=== PATIENT | female | born 1975 | race African-American/Black ===

== ENCOUNTER 2018-04-18 19:31 | Emergency (ER) | payer OTHER ==
[~2018-04-18] VITALS: Ht 157.5 cm; Wt 53.8 kg
[2018-04-18 20:26] LABS: HEMATOCRIT 31.9 % (36.0-46.0); HEMOGLOBIN 9.9 G/DL (11.9-15.5); MCH 23.6 PG (29.0-34.0); PLATELET COUNT 333 K/uL (156-360); RBC DIS.WIDTH-CV 16.3 % (11.8-14.6); RBC DIS.WIDTH-SD 44.7 % (39-53); WHITE BLOOD COUNT 5.7 K/uL (4.1-10.2)
[2018-04-18 20:37] LABS: CHLORIDE 105 mEq/L (99-109); POTASSIUM 3.7 mEq/L (3.7-5.4); SODIUM 138 mEq/L (136-147)
[2018-04-18 20:38] LABS: GLUCOSE 96 mg/dL (70-99)
[2018-04-18 20:42] LABS: CREATININE 0.8 mg/dL (0.6-1.3); GFR ESTIMATE (CALCULATED) > 59 mL/min/
[2018-04-18 20:43] LABS: UREA NITROGEN (BUN) 7 mg/dL (9-23)
[2018-04-18] MEDS ORDERED: CLEOCIN300 MG PO (22:21)
[2018-04-18 23:34] VITALS: BP 124/88
== END 2018-04-18 23:39 | disposition home or self-care (01) ==
LOC: EXP 19:31 → EME 19:31 → EXP 23:39
DX: L02.31 Cutaneous abscess of buttock (principal); D64.9 Anemia, unspecified; Z88.6 Allergy status to analgesic agent
CPT/HCPCS: 80048; 85027; 99281; 99284